=== PATIENT | female | born 1985 | race Caucasian/White ===

== ENCOUNTER 2017-04-20 17:01 | Emergency (ER) | payer OTHER ==
[2017-04-20 17:22] VITALS: BP 125/71; PULSE 100; TEMP 98.7; BMI 27.4
[2017-04-20] MEDS ORDERED: ALBUTEROL SO4 2.5/IPRATROPIUM 0.5 INH SOL 3 ML VIAL.NEB. NEB ONE ×2 (17:22→18:17)
--- NOTE | 2017-04-20 17:22 | PDOC ---
Rapid Medical Evaluation Time Seen by Provider: 04/20/17 17:20 Medical Evaluation: Allergies Allergy/AdvReac Type Severity Reaction Status Date / Time No Known Allergies Allergy Verified 04/20/17 17:19 04/20/17 17:20 31 year old female with asthma (never hospitalized, on albuterol MDI prn) who presents with one week of cough and wheezing. Alert, oriented, no distress. Diffuse expiratory wheezing with poor air entry bilaterally. RR 18, SpO2 95%. -Combivent nebs -Pgu -CXR -To FT for further evaluation
[2017-04-20] MEDS ORDERED: predniSONE 20 MG TABLET (UD) PO ONE (18:17)
[2017-04-20] MEDS ORDERED: predniSONE 20 MG TABLET (UD) ONE (18:17)
[2017-04-20] MEDS: ALBUTEROL SO4 0.083% IH SOL 2.5 MG/3 ML VIAL.NEB. NEB SCH ×2 (18:20→18:21)
--- NOTE | 2017-04-20 18:25 | PDOC ---
History of Present Illness - General Chief Complaint: Respiratory Stated Complaint: ASTHMA Time Seen by Provider: 04/20/17 17:20 Exam Limitations: No Limitations - History of Present Illness Initial Comments: 04/20/17 18:18 Patient is a 31-year-old female with history of asthma presents with wheezing and pain after coughing to bilateral lower back. Patient reports that she has been having wheezing and shortness of breath from asthma for 1 week. Has been using her son's nebulizer. Does not have many medication of her own. Denies fever, cough is nonproductive. No chest pain. Past Medical History: [Denies]. Allergies: No known allergies Medications: [Albuterol PRN, does not have any at home. ] Family History: Non-contributory Social History: Denies smoking, alcohol use, or IVDU Vital signs on arrival are [notable for pulse of 100.] Review of Systems GENERAL/CONSTITUTIONAL: [No fever or chills. No weakness. No weight change.] HEAD, EYES, EARS, NOSE AND THROAT: [No change in vision. No ear pain or discharge. No sore throat. ] CARDIOVASCULAR: [No chest pain or shortness of breath.] RESPIRATORY: [Cough and Wheezing, no hemoptysis.] GASTROINTESTINAL: [No nausea, vomiting, diarrhea or constipation. No rectal bleeding.] GENITOURINARY: [No dysuria, frequency, or change in urination.] MUSCULOSKELETAL: [No joint or muscle swelling or pain. No neck or back pain.] SKIN : [No rash or easy bruising.] NEUROLOGIC: [No headache, vertigo, loss of consciousness, or loss of sensation.] HEMATOLOGIC/LYMPHATIC: [No lymphadenopathy. ] Physical Exam: GENERAL: [The patient is awake, alert, and fully oriented, in no acute distress. ] EYES: [Pupils equal, round and reactive to light, extraocular movements intact, sclera anicteric, conjunctiva clear.] ENT: [Ears normal, nares patent, oropharynx clear without exudates. Moist mucous membranes. No uvula deviation] NECK: [Normal range of motion, supple without lymphadenopathy, JVD, or masses.] LUNGS: [Breath sounds equal, clear to auscultation bilaterally. Expiratory wheezes, and no crackles.] HEART: [Regular rate and rhythm, normal S1 and S2 without murmur, rub or gallop. ] ABDOMEN: [Soft, nontender, normoactive bowel sounds. No guarding, no rebound. No masses. No bruising or abrasions] MUSCULOSKELETAL: [Normal range of motion, no edema. No clubbing or cyanosis. No cords, erythema, or tenderness. No CVA Tenderness with fist.] NEUROLOGICAL: [Cranial nerves II through XII grossly intact. Normal speech, normal gait.] SKIN: [Warm, Dry, normal turgor, no rashes or lesions noted.] Past History - Past Medical History Allergies/Adverse Reactions: Allergies Allergy/AdvReac Type Severity Reaction Status Date / Time No Known Allergies Allergy Verified 04/20/17 17:19 Home Medications: Ambulatory Orders Albuterol 0.083% Nebulizer Anika [Ventolin 0.083% Nebulizer Soln -] 1 neb NEB Q4H #30 vial 04/20/17 Albuterol Sulfate Inhaler - [Ventolin HFA Inhaler -] 1 - 2 inh PO Q4H #1 inhaler 04/20/17 Azithromycin [Zithromax 250mg Tablets -] 250 mg PO UTDICT #6 tab 04/20/17 Prednisone [Deltasone -] 20 mg PO BID #10 tablet 04/20/17 Asthma: Yes Cancer: No Cardiac Disorders: No COPD: No Diabetes: No HTN: No Seizures: No Thyroid Disease: No - Reproductive History (#): 5 Para: 4 - Immunization History Immunization Up to Date: Yes - Suicide/Smoking/Psychosocial Hx Smoking History: Never smoked Have you smoked in the past 12 months: No Number of Cigarettes Smoked Daily: 0 Hx Alcohol Use: No Drug/Substance Use Hx: No Substance Use Type: None Hx Substance Use Treatment: No *Physical Exam - Vital Signs Last Vital Signs Temp Pulse Resp BP Pulse Ox 98.7 F 100 H 19 125/71 95 04/20/17 17:19 04/20/17 17:19 04/20/17 17:19 04/20/17 17:19 04/20/17 17:19 ED Treatment Course - ADDITIONAL ORDERS Additional order review: Laboratory Results 04/20/17 17:28 Urine HCG, Qual Negative Medical Decision Making - Medical Decision Making 04/20/17 18:25 A/P: Patient here with the wheezing states she is having an asthma exacerbation for 1 week. Has been using her son's albuterol with no resolve. Patient now complaining of bilateral lower torso pain, pain with coughing. Patient reports that she's been coughing frequently over the last week. Chest x- ray ordered in triage, urine was negative. Combivent treatment given, prednisone 60 mg by mouth, will reevaluate 04/20/17 19:20 Xray wet read negative for acute cardio pulmonary desease. Same compared to previous. Patient reports that she feels significantly better after the treatment and the steroids. Will DC patient on albuterol and azithromycin. Follow up with PMD. I discussed the physical exam findings, ancillary test results and final diagnoses with the patient. I answered all of the patient's questions. The patient was satisfied with the care received and felt comfortable with the discharge plan and treatment plan. The patient will call to arrange follow-up and will return to the Emergency Department with any new, persistent or worsening symptoms. *DC/Admit/Observation/Transfer Diagnosis at time of Disposition: Asthma Qualifiers: Asthma severity: mild Asthma persistence: intermittent Asthma complication type : with acute exacerbation Qualified Code(s): J45.21 - Mild intermittent asthma with (acute) exacerbation URI (upper respiratory infection) Qualifiers: URI type: unspecified URI Qualified Code(s): J06.9 - Acute upper respiratory infection, unspecified - Discharge Dispostion Disposition: HOME Condition at time of disposition: Stable Admit: No - Prescriptions Prescriptions: Albuterol 0.083% Nebulizer Anika [Ventolin 0.083% Nebulizer Soln -] 1 neb NEB Q4H #30 vial Albuterol Sulfate Inhaler - [Ventolin HFA Inhaler -] 1 - 2 inh PO Q4H #1 inhaler Azithromycin [Zithromax 250mg Tablets -] 250 mg PO UTDICT #6 tab Prednisone [Deltasone -] 20 mg PO BID #10 tablet - Referrals Referrals: [facility] [Provider Group] - Patient Instructions Printed Discharge Instructions: DI for Acute Bronchitis Additional Instructions: Keep head of bed elevated 45 when sleeping Treatments every 4 hours as needed Cool air humidifier Motrin for fever greater than 101 Followup in the primary care doctor's office in 2 days for evaluation. If any respiratory distress, increased cough, inability to drink, increased wheezing please return immediately to emergency department. - Post Discharge Activity Forms/Work/School Notes: Back to Work
== END 2017-04-20 19:51 | disposition home or self-care (01) ==
LOC: JERFT 17:01
PROC: 3E0F7GC Introduction of Other Therapeutic Substance into Respiratory Tract, Via Natural or Artificial Opening (ICD-10-PCS; principal; 2017-04-20)
DX: J45.21 Mild intermittent asthma with (acute) exacerbation (principal); J06.9 Acute upper respiratory infection, unspecified
CPT/HCPCS: 71020-TC; 84703; 94640; 99281-25

== ENCOUNTER 2017-08-27 23:58 | Emergency (ER) | payer OTHER ==
--- NOTE | 2017-08-28 01:17 | PDOC ---
History of Present Illness - General Chief Complaint: Asthma Stated Complaint: ASTHMA Time Seen by Provider: 08/28/17 01:14 History Source: Patient Exam Limitations: No Limitations - History of Present Illness Initial Comments: 32 yo F history asthma presents with asthma exacerbation. She states that her daughter has been sick with URI symptoms (daughter is in ED as a patient currently as well). Patient does not have fever. +Cough, SOB, wheezing. She took an albuterol treatment at home at 7pm but did not significantly improve. Past History - Past Medical History Allergies/Adverse Reactions: Allergies Allergy/AdvReac Type Severity Reaction Status Date / Time No Known Allergies Allergy Verified 08/28/17 00:34 Home Medications: Ambulatory Orders Albuterol 0.083% Nebulizer Anika [Ventolin 0.083% Nebulizer Soln -] 1 neb NEB Q4H #30 vial 04/20/17 Albuterol Sulfate Inhaler - [Ventolin HFA Inhaler -] 1 - 2 inh PO Q4H #1 inhaler 04/20/17 Asthma: Yes Cancer: No Cardiac Disorders: No COPD: No Diabetes: No HTN: No Seizures: No Thyroid Disease: No - Reproductive History (#): 5 Para: 4 - Immunization History Immunization Up to Date: Yes - Suicide/Smoking/Psychosocial Hx Smoking History: Never smoked Have you smoked in the past 12 months: No Number of Cigarettes Smoked Daily: 0 Information on smoking cessation initiated: No Hx Alcohol Use: No Drug/Substance Use Hx: No Substance Use Type: None Hx Substance Use Treatment: No Review of Systems - Review of Systems Able to Perform ROS?: Yes Comments:: GENERAL/CONSTITUTIONAL: No fever or chills. No weakness. HEAD, EYES, EARS, NOSE AND THROAT: No change in vision. No ear pain or discharge. No sore throat. CARDIOVASCULAR: No chest pain. +Shortness of breath. RESPIRATORY: No cough. +Wheezing. No hemoptysis. GASTROINTESTINAL: No nausea, vomiting, diarrhea or constipation. GENITOURINARY: No dysuria, frequency, or change in urination. MUSCULOSKELETAL: No joint or muscle swelling or pain. No neck or back pain. SKIN: No rash NEUROLOGIC: No headache, vertigo, loss of consciousness, or change in strength/ sensation. ENDOCRINE: No increased thirst. No abnormal weight change. HEMATOLOGIC/LYMPHATIC: No anemia, easy bleeding, or history of blood clots. ALLERGIC/IMMUNOLOGIC: No hives or skin allergy. *Physical Exam - Vital Signs Last Vital Signs Temp Pulse Resp BP Pulse Ox 98.3 F 77 18 117/68 97 08/28/17 00:35 08/28/17 00:35 08/28/17 00:35 08/28/17 00:35 08/28/17 00:35 - Physical Exam Comments: GENERAL: Awake, alert, and fully oriented, in no acute distress HEAD: No signs of trauma EYES: PERRLA, EOMI, sclera anicteric, conjunctiva clear ENT: Auricles normal inspection, hearing grossly normal, nares patent, oropharynx clear without exudates. Moist mucosa NECK: Normal ROM, supple, no lymphadenopathy, JVD, or masses LUNGS: Dec air entry B/L, scattered exp wheezes. Speaking full sentences. HEART: Regular rate and rhythm, normal S1 and S2, no murmurs, rubs or gallops ABDOMEN: Soft, nontender, normoactive bowel sounds. No guarding, no rebound. No masses EXTREMITIES: Normal range of motion, no edema. No clubbing or cyanosis. No cords, erythema, or tenderness NEUROLOGICAL: Cranial nerves II through XII grossly intact. Normal speech, normal gait SKIN: Warm, Dry, normal turgor, no rashes or lesions noted. Medical Decision Making - Medical Decision Making 08/28/17 02:00 Pt with asthma exacerbation. Will give nebs and steroids and reassess. Likely DC home. 08/28/17 03:33 Pt reports improvement in resp symptoms. Lung exam improved. Stable for DC home. *DC/Admit/Observation/Transfer Diagnosis at time of Disposition: Asthma Qualifiers: Asthma severity: unspecified severity Asthma persistence: intermittent Asthma complication type: with acute exacerbation Qualified Code(s): J45.21 - Mild intermittent asthma with (acute) exacerbation - Discharge Dispostion Disposition: HOME Condition at time of disposition: Stable Admit: No - Referrals Referrals: Dmitriy Rogers MD [Primary Care Provider] - - Patient Instructions Printed Discharge Instructions: DI for Asthma -- Adult - Post Discharge Activity
[2017-08-28 01:18] VITALS: BP 117/68; PULSE 77; TEMP 98.3; BMI 27.4
[2017-08-28] MEDS ORDERED: predniSONE 20 MG TABLET (UD) PO ONE (01:25)
[2017-08-28] MEDS ORDERED: predniSONE 20 MG TABLET (UD) ONE (01:31)
[2017-08-28] MEDS ORDERED: ALBUTEROL SO4 2.5/IPRATROPIUM 0.5 INH SOL 3 ML VIAL.NEB. NEB ONE (01:32)
[2017-08-28] MEDS: ALBUTEROL SO4 2.5/IPRATROPIUM 0.5 INH SOL 3 ML VIAL.NEB. NEB SCH ×4 (01:44→02:53)
== END 2017-08-28 04:23 | disposition home or self-care (01) ==
LOC: JER 23:58
PROC: 3E0F7GC Introduction of Other Therapeutic Substance into Respiratory Tract, Via Natural or Artificial Opening (ICD-10-PCS; principal; 2017-08-27)
PROC: 3E0F7GC Introduction of Other Therapeutic Substance into Respiratory Tract, Via Natural or Artificial Opening (ICD-10-PCS; 2017-08-27)
PROC: 3E0F7GC Introduction of Other Therapeutic Substance into Respiratory Tract, Via Natural or Artificial Opening (ICD-10-PCS; 2017-08-27)
PROC: 3E0F7GC Introduction of Other Therapeutic Substance into Respiratory Tract, Via Natural or Artificial Opening (ICD-10-PCS; 2017-08-27)
DX: J45.21 Mild intermittent asthma with (acute) exacerbation (principal)
CPT/HCPCS: 94640; 99282-25

== ENCOUNTER 2018-02-05 22:54 | Emergency (ER) | payer OTHER ==
[2018-02-05 22:57] VITALS: BP 109/63; PULSE 88; TEMP 98; BMI 29.6
--- NOTE | 2018-02-06 00:50 | PDOC ---
History of Present Illness - General Chief Complaint: Foreign Body (FB) Stated Complaint: EAR PAIN Time Seen by Provider: 02/05/18 22:58 History Source: Patient Exam Limitations: No Limitations - History of Present Illness Initial Comments: 02/06/18 00:40 HISTORY OF PRESENT ILLNESS: This is a 32-year-old woman who presents emergency Department with right ear pain and minimal hearing loss after using Q-tips this evening. Patient states all cleaning ears she had sudden pain and decrease in hearing loss. Patient feels that something is stuck in her ear at this time. No recent travel or sick contacts. PAST MEDICAL HISTORY: asthma SURGICAL HISTORY: Denies ALLERGIES: No known drug allergies REVIEW OF SYSTEMS General/Constitutional: Denies fever or chills. Denies weakness, weight change. HEENT: Denies change in vision. Right ear pain. No discharge. Decreased hearing. Denies sore throat. Cardiovascular: Denies chest pain or shortness of breath. Respiratory: Denies cough, wheezing, or hemoptysis. Gastrointestinal: Denies nausea, vomiting, diarrhea or constipation. Denies rectal bleeding. Genitourinary: Denies dysuria, frequency, or change in urination. Musculoskeletal: Denies joint or muscle swelling or pain. Denies neck or back pain. Skin and breasts: Denies rash or easy bruising. Neurologic: Denies headache, vertigo, loss of consciousness, or loss of sensation. Psychiatric: Denies depression or anxiety. Endocrine: Denies increased thirst. Denies abnormal weight change. Hematologic/Lymphatic: Denies anemia, easy bleeding, or history of blood clots. Allergic/Immunologic: Denies hives or skin allergy. Denies latex allergy. PHYSICAL EXAM General Appearance: Well-appearing, appropriately dressed. No apparent distress , no intoxication. HEENT: EOMI, PERRLA, normal ENT inspection, normal voice, pharynx normal. No conjunctival pallor. No photophobia, scleral icterus. Right TM with rupture noted. Left TM WNL. Neck: Supple. Trachea midline. No tenderness, rigidity, carotid bruit, stridor , lymphadenopathy, or thyromegaly. Respiratory/Chest: Lungs CTAB. No shortness of breath, chest tenderness, respiratory distress, accessory muscle use. No crackles, rales, rhonchi, stridor , wheezing, dullness Cardiovascular: RRR. S1, S2. No JVD, murmur, bradycardia, tachycardia. Vascular Pulses: Dorsalis-Pedis (R): 2+, Dorsalis-Pedis (L): 2+ Gastrointestinal/Abdominal: Normal bowel sounds. Abdomen soft, non-distended. No tenderness or rebound tenderness. No organomegaly, pulsatile mass, guarding, hernia, hepatomegaly, splenomegaly. Lymphatic: No adenopathy, tenderness. Musculoskeletal/Extremities: Normal inspection. FROM of all extremities, normal capillary refill. Pelvis Stable. No CVA tenderness. No tenderness to extremities, pedal edema, swelling, erythema or deformity. Integumentary: Appropriate color, dry, warm. No cyanosis, erythema, jaundice or rash Neurologic: interventional nurse II-XII intact. Fully oriented, alert. Appropriate mood/affect. Motor strength 5/5. No appreciable EOM palsy, facial droop or sensory deficit. Past History - Past Medical History Allergies/Adverse Reactions: Allergies Allergy/AdvReac Type Severity Reaction Status Date / Time No Known Allergies Allergy Verified 02/05/18 22:57 Home Medications: Ambulatory Orders Albuterol 0.083% Nebulizer Anika [Ventolin 0.083% Nebulizer Soln -] 1 neb NEB Q4H #30 vial 08/28/17 Albuterol Sulfate Inhaler - [Ventolin HFA Inhaler -] 1 - 2 inh PO Q4H #1 inhaler 08/28/17 predniSONE [Deltasone -] 40 mg PO DAILY #8 tablet 08/28/17 Ofloxacin Otic [Floxin Otic -] 5 drop AD BID #50 drops 02/06/18 Asthma: Yes Cancer: No Cardiac Disorders: No COPD: No Diabetes: No HTN: No Seizures: No Thyroid Disease: No - Reproductive History (#): 5 Para: 4 - Immunization History Immunization Up to Date: Yes - Suicide/Smoking/Psychosocial Hx Smoking History: Never smoked Have you smoked in the past 12 months: No Number of Cigarettes Smoked Daily: 0 Hx Alcohol Use: No Drug/Substance Use Hx: No Substance Use Type: None Hx Substance Use Treatment: No *Physical Exam - Vital Signs Last Vital Signs Temp Pulse Resp BP Pulse Ox 98.0 F 88 18 109/63 100 02/05/18 22:55 02/05/18 22:55 02/05/18 22:55 02/05/18 22:55 02/05/18 22:55 Medical Decision Making - Medical Decision Making 02/06/18 01:14 A/P: 32-year-old woman with right ear pain status post direct trauma with a cotton swab Left TM is within normal limits Right TM reveals perforation without retained foreign body No tenderness to tragus or mastoid bilaterally External auditory canals free of erythema or exudates I will discharge the patient home with ofloxacin drops and ENT referral. Patient verbalizes understanding of discharge instructions. *DC/Admit/Observation/Transfer Diagnosis at time of Disposition: Tympanic membrane perforation Qualifiers: Laterality: right Qualified Code(s): H72.91 - Unspecified perforation of tympanic membrane, right ear - Discharge Dispostion Disposition: HOME Condition at time of disposition: Stable Decision to Admit order: No - Prescriptions Prescriptions: Ofloxacin Otic [Floxin Otic -] 5 drop AD BID #50 drops - Referrals Referrals: Eric Borjas MD [Staff Physician] - - Patient Instructions Printed Discharge Instructions: DI for Tympanic Membrane Perforation-Adult Additional Instructions: You have been given a referral for Dr. Borjas who is an ENT specialist. Make an appointment for evaluation on Wednesday. Keep water out of your ear. Return to emergency department for any concerns Print Language: MONEGASQUE - Post Discharge Activity
== END 2018-02-06 01:18 | disposition home or self-care (01) ==
LOC: JER 22:54
DX: S09.21XA Traumatic rupture of right ear drum, initial encounter (principal); W22.8XXA Striking against or struck by other objects, initial encounter; Y93.E8 Activity, other personal hygiene; Y92.038 Other place in apartment as the place of occurrence of the external cause; Y99.8 Other external cause status
CPT/HCPCS: 99282-25

== ENCOUNTER 2018-04-02 23:45 | Inpatient (IN) | payer OTHER ==
[2018-04-02] MEDS: OXYTOCIN 20 UNITS in 0.9% NS 20 UNIT/1,000 ML INFUS.BAG IV SCH (23:55)
[2018-04-03] MEDS ORDERED: DEXTROSE 5%-LACTATED RINGERS 1,000 ML IV SCH (00:30)
[2018-04-03] MEDS ORDERED: WITCH HAZEL 50% (TUCKS) 40 PAD/JAR PAD TP PRN (00:32)
[2018-04-03] MEDS ORDERED: BENZOCAINE 28 GM HEMORRHOIDAL OINTMENT TP PRN (00:32)
[2018-04-03] MEDS ORDERED: METHYLERGONOVINE MALEATE 0.2 MG/1 ML AMP IM PRN (00:32)
[2018-04-03] MEDS ORDERED: BENZOCAINE 20% 57 GM BOTTLE TP PRN (00:32)
[2018-04-03] MEDS ORDERED: BISACODYL 10 MG SUPP.RECT RC PRN (00:32)
--- NOTE | 2018-04-03 00:32 | HP ---
Past Medical History - Admission Chief Complaint: Labor pain History of Present Illness: 32 yo @ 37.2 weeks gestation, EDC 04/21/18, presents to L&D in active labor. She was brought from ER by wheelchair ready to deliver. History Source: Patient Limitations to Obtaining History: No Limitations - Past Medical History ...: 6 ...Para: 5 ...EDC by Brendano: 04/17/18 Heme/Onc: Yes: Anemia - Past Surgical History Past Surgical History: Yes: None Hx Myomectomy: No Hx Transabdominal Cerclage: No - Smoking History Smoking history: Never smoked Have you smoked in the past 12 months: No Aproximately how many cigarettes per day: 0 - Alcohol/Substance Use Hx Alcohol Use: No - Social History Usual Living Arrangement: Yes: With Significant Other History of Recent Travel: No Home Medications - Allergies Allergies/Adverse Reactions: Allergies Allergy/AdvReac Type Severity Reaction Status Date / Time almond Allergy Verified 04/03/18 00:42 apple Allergy Verified 04/03/18 00:42 strawberry Allergy Verified 04/03/18 00:42 - Home Medications Home Medications: Ambulatory Orders Albuterol 0.083% Nebulizer Anika [Ventolin 0.083% Nebulizer Soln -] 1 neb NEB Q4H #30 vial 08/28/17 Albuterol Sulfate Inhaler - [Ventolin HFA Inhaler -] 1 - 2 inh PO Q4H #1 inhaler 08/28/17 Pnv No.95/Ferrous Fum/Folic AC [ Vitamin Tablet] 1 tab PO DAILY Family Disease History - Family Disease History Family History: Unremarkable Review of Systems - Review of Systems Constitutional: reports: No Symptoms Eyes: reports: No Symptoms HENT: reports: No Symptoms Neck: reports: No Symptoms Cardiovascular: reports: No Symptoms Respiratory: reports: No Symptoms Gastrointestinal: reports: No Symptoms Genitourinary: reports: Pain Breasts: reports: No Symptoms Reported Musculoskeletal: reports: No Symptoms Integumentary: reports: No Symptoms Neurological: reports: No Symptoms Endocrine: reports: No Symptoms Psychiatric: reports: No Symptoms Pain Intensity: 10 Physical Exam - Maternity Constitutional: Yes: Well Nourished Eyes: Yes: Conjunctiva Clear HENT: Yes: Atraumatic Neck: Yes: Supple Cardiovascular: Yes: Regular Rate and Rhythm Lungs: Clear to auscultation - Abdominal Exam/OB Number of Fetuses: Single Presentation: Vertex - Vaginal Exam/OB Dilatation (cm): 10 Effacement (%): 100 Amniotic Membrane Status: Intact Amniotic Fluid: Yes: Clear Station: 0 - Physical Exam Musculoskeletal: Yes: WNL Extremities: Yes: WNL ...Motor Strength: WNL Psychiatric: Yes: Alert, Oriented Problem List - Problems (1) Arrested active labor, delivered, current hospitalization Code(s): O62.1 - SECONDARY UTERINE INERTIA Assessment/Plan Active labor 38 weeks gestation Admit for vaginal delivery
--- NOTE | 2018-04-03 00:36 | PN ---
Delivery - Delivery Vaginal Delivery: Spontaneous Episiotomy/Laceration: None EBL (cc): 250 Remarks - Remarks Remarks: Normal spontaneous vaginal delivery of a live infant over intact perineum. Nose / Oropharynx suctioned @ perineum. Cord clamped and cut. Placenta expelled spontaneously intact. Baby handed to nurse. Mother in stable condition
[2018-04-03 01:17] LABS: BASO % 0.3 % (0-2.0); HEMATOCRIT 35.1 % (32.4-45.2); HEMOGLOBIN 11.7 GM/dL (10.7-15.3); LYMPH % 9.8 % (8-40); MCHC 33.4 g/dl (32.0-36.0); MONO % 8.3 % (3.8-10.2); NEUT % 78.6 % (42.8-82.8); PLATELET COUNT 244 K/MM3 (134-434); RDW 14.9 % (11.6-15.6)
[2018-04-03 01:30] LABS: INR 0.99 (0.83-1.09); PROTHROMBIN TIME (PATIENT) 11.7 SEC (9.7-13.0)
[2018-04-03 01:33] LABS: ACTIVATED PTT 33.2 SECONDS (25.2-36.5)
[2018-04-03 01:41] LABS: ALBUMIN 2.8 g/dl (3.4-5.0); ALK PHOS 141 U/L (45-117); ANION GAP 10 MMOL/L (8-16); BILIRUBIN,TOTAL 0.6 mg/dL (0.2-1); BLOOD UREA NITROGEN 6 mg/dL (7-18); CALCIUM 7.9 mg/dL (8.5-10.1); CHLORIDE 103 mmol/L (98-107); CO2 22 mmol/L (21-32); CREATININE 0.6 mg/dL (0.55-1.3); GLUCOSE,RANDOM 95 mg/dL (74-106); POTASSIUM 4.3 mmol/L (3.5-5.1); SGOT/AST 31 U/L (15-37); SGPT/ALT 28 U/L (13-61); SODIUM 135 mmol/L (136-145); TOT PROT 6.9 g/dl (6.4-8.2)
[2018-04-03 01:55] VITALS: BMI 30.6
[2018-04-03] MEDS: OXYTOCIN 20 UNITS in 0.9% NS 20 UNIT/1,000 ML INFUS.BAG IV SCH ×2 (02:13→12:00)
[2018-04-03 02:38] LABS: URINE APPEARANCE CLOUDY; URINE BILIRUBIN NEGATIVE (<2.0 mg/dL); URINE COLOR RED; URINE GLUCOSE (UA) NEGATIVE (NEGATIVE); URINE KETONE 1+ (NEGATIVE); URINE LEUK ESTERASE 1+ (NEGATIVE); URINE NITRITE NEGATIVE (NEGATIVE); URINE PROTEIN 2+ (NEGATIVE)
[2018-04-03] MEDS ORDERED: OXYTOCIN 20 UNITS in 0.9% NS 20 UNIT/1,000 ML INFUS.BAG IV ONE (02:45)
[2018-04-03 02:53] LABS: COCAINE, UR NEGATIVE ng/ml (CUTOFF=300); METHADONE, UR NEGATIVE ng/ml (CUTOFF=300); OPIATES, URI NEGATIVE ng/ml (CUTOFF=300); PHENCYCLIDINE,URINE NEGATIVE ng/ml (CUTOFF=25); URINE AMPHETAMINES NEGATIVE ng/ml (CUTOFF=500); URINE BARBITURATES NEGATIVE ng/ml (CUTOFF=200); URINE BENZODIAZEPINES NEGATIVE ng/ml (CUTOFF=200)
[2018-04-03 02:58] LABS: URINE MUCUS RARE; YEAST MANY
[2018-04-03] MEDS ORDERED: TUBERCULIN PPD 5 TU/0.1ML SYRINGE (IN PATIENT USE ONLY) ID ONE (03:30)
[2018-04-03] MEDS: IBUPROFEN 600 MG TABLET (FP) PO PRN (08:38)
[2018-04-03] MEDS: ACETAMINOPHEN 325 MG TABLET (FP) PO PRN (08:38)
[2018-04-03] MEDS: FERROUS SO4 325 MG TABLET (FP) PO SCH ×2 (09:04→22:29)
[2018-04-03] MEDS: PRENATAL VITAMINS W/ FOLIC ACID TABLET (FP) PO SCH (09:04)
[2018-04-03] MEDS ORDERED: PNEUMOC 13-VAL CONJ-DIP CRM/PF 0.5 ML DISP.SYRIN IM ONE (10:00)
[2018-04-03] MEDS ORDERED: DIPHTH,PERTUSS(ACELL),TET 0.5 ML DISP.SYRIN IM ONE (10:00)
[2018-04-03] MEDS ORDERED: FLU VACCINE QUAD 60 MCG/0.5 ML (MDV 18-19) IM ONE (10:00)
[2018-04-03] MEDS ORDERED: ALBUTEROL SO4 8 GM HFA INHALER IH PRN (11:16)
--- NOTE | 2018-04-03 14:12 | PN ---
Post Progress Note - Subjective Subjective: 32 yo Para 6 status post vaginal delivery, seen and evaluated. Doing well. Post Day: 1 Type of Delivery: Vital Signs: Vital Signs Temperature 97.9 F 04/03/18 09:00 Pulse Rate 79 04/03/18 09:00 Respiratory Rate 20 04/03/18 09:00 Blood Pressure 100/58 L 04/03/18 09:00 O2 Sat by Pulse Oximetry (%) Breast Exam: Yes: Soft Uterus: Yes: Fundus Firm Abdomen/GI: Yes: Abdomen soft, Tolerating PO Lochia: Yes: Rubra Lochia, amount: Moderate Extremities: Yes: Calves non-tender Perineum: Yes: Intact Activity: Ambulating - Labs Labs: CBC WBC 14.0 K/mm3 (4.0-10.0) H 04/03/18 00:30 RBC 4.50 M/mm3 (3.60-5.2) 04/03/18 00:30 Hgb 11.7 GM/dL (10.7-15.3) 04/03/18 00:30 Hct 35.1 % (32.4-45.2) D 04/03/18 00:30 MCV 78.0 fl (80-96) L 04/03/18 00:30 MCH 26.0 pg (25.7-33.7) D 04/03/18 00:30 MCHC 33.4 g/dl (32.0-36.0) 04/03/18 00:30 RDW 14.9 % (11.6-15.6) D 04/03/18 00:30 Plt Count 244 K/MM3 (134-434) D 04/03/18 00:30 MPV 10.0 fl (7.5-11.1) D 04/03/18 00:30 Absolute Neuts (auto) 11.0 K/mm3 (1.5-8.0) H 04/03/18 00:30 Neutrophils % 78.6 % (42.8-82.8) 04/03/18 00:30 Lymphocytes % 9.8 % (8-40) 04/03/18 00:30 Monocytes % 8.3 % (3.8-10.2) 04/03/18 00:30 Eosinophils % 3.0 % (0-4.5) 04/03/18 00:30 Basophils % 0.3 % (0-2.0) 04/03/18 00:30 Nucleated RBC % 0 % (0-0) 04/03/18 00:30 Problem List - Problems (1) Arrested active labor, delivered, current hospitalization Code(s): O62.1 - SECONDARY UTERINE INERTIA (2) Status post vaginal delivery Code(s): CWI5701 - Assessment/Plan Status post vaginal delivery Stable Continue routine care
[2018-04-04 08:19] LABS: BASO % 0.8 % (0-2.0); EOS % 9.8 % (0-4.5); HEMATOCRIT 31.6 % (32.4-45.2); LYMPH % 23.6 % (8-40); MCH 24.7 pg (25.7-33.7); MCHC 31.5 g/dl (32.0-36.0); MEAN CELL VOLUME 78.3 fl (80-96); MEAN PLT VOLUME 9.4 fl (7.5-11.1); MONO % 8.7 % (3.8-10.2); NEUT % 57.1 % (42.8-82.8); PLATELET COUNT 225 K/MM3 (134-434); RBC 4.04 M/mm3 (3.60-5.2); RDW 15.1 % (11.6-15.6); WHITE BLOOD COUNT 10.3 K/mm3 (4.0-10.0)
[2018-04-04] MEDS: FERROUS SO4 325 MG TABLET (FP) PO SCH (10:00)
[2018-04-04] MEDS: PRENATAL VITAMINS W/ FOLIC ACID TABLET (FP) PO SCH (10:00)
[2018-04-04] MEDS: IBUPROFEN 600 MG TABLET (FP) PO PRN (10:05)
[2018-04-04] MEDS: ACETAMINOPHEN 325 MG TABLET (FP) PO PRN (10:06)
[2018-04-04 13:14] LABS: HBsAG SCREEN Negative (Negative)
[2018-04-04 14:34] VITALS: BP 103/69; PULSE 77; TEMP 98.3
--- NOTE | 2018-04-04 15:17 | DS ---
Physical Exam-[employer] Vital Signs: Vital Signs Temperature 98.3 F 04/04/18 10:00 Pulse Rate 77 04/04/18 10:00 Respiratory Rate 18 04/04/18 10:00 Blood Pressure 103/69 04/04/18 10:00 O2 Sat by Pulse Oximetry (%) Constitutional: Yes: Well Nourished Eyes: Yes: Conjunctiva Clear HENT: Yes: Atraumatic Neck: Yes: Supple Cardiovascular: Yes: Regular Rate and Rhythm Respiratory: Yes: Regular Gastrointestinal: Yes: Normal Bowel Sounds External Genitalia: Yes: Normal Vaginal Exam: Yes: Normal Cervix: Yes: Normal Uterus: Yes: Firm ....Post : Yes: Uterus firm, Moderate lochia serosa Musculoskeletal: Yes: WNL Extremities: Yes: WNL Integumentary: Yes: WNL Neurological: Yes: Alert, Oriented ...Motor Strength: WNL Psychiatric: Yes: Alert, Oriented Labs: CBC, BMP 04/04/18 07:00 04/03/18 00:30 Delivery - Delivery Vaginal Delivery: Spontaneous Type of Anesthesia: None Episiotomy/Laceration: None EBL (cc): 350 Delivery, Single - Stages of Labor Date 1st Stage Initiatied: 04/02/18 Time 1st Stage Initiated: 20:00 Date 2nd Stage Initiated: 04/02/18 Time 2nd Stage Initiated: 23:45 Date of Delivery: 04/02/18 Time of Delivery: 23:45 Time Placenta Delivered: 23:50 - Condition of Infant Groundhand/Medical/Surgery Registered Nurse Present: No Gender: Female Weight: 6 lb 2 oz Position: Right, OA Total Hours ROM (Hrs/Mins): 05MIN - 5 Minutes Total Score: 9 1 Minute Total Score: 9 - Feeding Plan Initial Plan: Elected not to breastfeed exclusively throughout hospitalization Discharge Summary Reason For Visit: LABOR Current Active Problems Arrested active labor, delivered, current hospitalization (Acute) Status post vaginal delivery (Acute) Procedures: Principal: Normal spontaneous vaginal delivery Hospital Course: Routine care Condition: Good - Instructions Diet, Activity, Other Instructions: Regular diet No douching, no sexual intercourse x 6 weeks F/U in clinic in 6 weeks Disposition: HOME - Home Medications Comprehensive Discharge Medication List: Ambulatory Orders Albuterol 0.083% Nebulizer Anika [Ventolin 0.083% Nebulizer Soln -] 1 neb NEB Q4H #30 vial 08/28/17 Albuterol Sulfate Inhaler - [Ventolin HFA Inhaler -] 1 - 2 inh PO Q4H #1 inhaler 08/28/17 Pnv No.95/Ferrous Fum/Folic AC [ Vitamin Tablet] 1 tab PO DAILY
[2018-04-04] MEDS ORDERED: SENNOSIDES/DOCUSATE COMBO (SENNA PLUS) TABLET (UD) PO PRN (22:00)
== END 2018-04-04 16:45 | disposition home or self-care (01) | DRG 560 ==
LOC: JLDR 23:45 → J3W 04-03 03:57
PROVIDERS: ADMIT Obstetrics & Gynecology; ATTEND Obstetrics & Gynecology
PROC: 10E0XZZ Delivery of Products of Conception, External Approach (ICD-10-PCS; principal; 2018-04-03)
DX: O62.1 Secondary uterine inertia (principal); Z3A.37 37 weeks gestation of pregnancy; Z37.0 Single live birth
CPT/HCPCS: 36415; 59409; 71046-TC-FY; 80053; 80307; 81003; 81015; 85025; 85610; 85730; 86593; 86762; 86850; 86900; 86901; 87340; 87389; 90670; 90686; 90715; G0008; G0009

== ENCOUNTER 2018-05-11 17:13 | Emergency (ER) | payer OTHER ==
--- NOTE | 2018-05-11 17:31 | PDOC ---
Rapid Medical Evaluation Time Seen by Provider: 05/11/18 17:29 Medical Evaluation: Allergies Allergy/AdvReac Type Severity Reaction Status Date / Time almond Allergy Verified 04/03/18 00:42 apple Allergy Verified 04/03/18 00:42 strawberry Allergy Verified 04/03/18 00:42 05/11/18 17:29 I have performed a brief in-person evaluation of this patient. The patient presents with a chief complaint of: wheezing for 1 week Pertinent physical exam findings: Lungs CTAB. OP- cobblestoning in posterior. I have ordered the following: nothing The patient will proceed to the ED for further evaluation. Discharge Disposition - Diagnosis URI (upper respiratory infection) - Referrals - Patient Instructions - Post Discharge Activity
[2018-05-11 17:32] VITALS: BP 116/96; PULSE 91; TEMP 98.3; BMI 27.4
[2018-05-11] MEDS ORDERED: DEXAMETHASONE LIQUID 0.5 MG/5 ML 240 ML BULK BOTTLE PO ONE (18:18)
[2018-05-11] MEDS ORDERED: ALBUTEROL SO4 2.5/IPRATROPIUM 0.5 INH SOL 3 ML VIAL.NEB. NEB ONE (18:19)
[2018-05-11] MEDS ORDERED: DEXAMETHASONE SOD PHOSPHATE 10 MG/1 ML VIAL ONE (18:19)
--- NOTE | 2018-05-11 18:20 | PDOC ---
History of Present Illness - General Chief Complaint: Asthma Stated Complaint: ASTHMA Time Seen by Provider: 05/11/18 17:29 - History of Present Illness Initial Comments: 05/11/18 18:18 32 y/o F with PMH significant for asthma presents for wheezing unrelieved with home nebulizer x2 weeks. No prior hospitalizations or intubations Past History - Past Medical History Allergies/Adverse Reactions: Allergies Allergy/AdvReac Type Severity Reaction Status Date / Time almond Allergy Verified 05/11/18 17:32 apple Allergy Verified 05/11/18 17:32 strawberry Allergy Verified 05/11/18 17:32 Home Medications: Ambulatory Orders Albuterol 0.083% Nebulizer Anika [Ventolin 0.083% Nebulizer Soln -] 1 neb NEB Q4H #30 vial 08/28/17 Albuterol Sulfate Inhaler - [Ventolin HFA Inhaler -] 1 - 2 inh PO Q4H #1 inhaler 08/28/17 Albuterol 0.083% Nebulizer Anika [Ventolin 0.083% Nebulizer Soln -] 1 neb NEB Q4H PRN #20 vial 05/11/18 Albuterol Sulfate Inhaler - [Ventolin HFA Inhaler -] 1 - 2 inh PO Q4H #1 inhaler 05/11/18 Asthma: Yes Cancer: No Cardiac Disorders: No COPD: No Diabetes: No HTN: No Seizures: No Thyroid Disease: No - Reproductive History (#): 5 Para: 4 - Immunization History Immunization Up to Date: Yes - Suicide/Smoking/Psychosocial Hx Smoking History: Never smoked Have you smoked in the past 12 months: No Number of Cigarettes Smoked Daily: 0 Information on smoking cessation initiated: No Hx Alcohol Use: No Drug/Substance Use Hx: No Substance Use Type: None Hx Substance Use Treatment: No Review of Systems - Review of Systems Constitutional: No: Fever Respiratory: Yes: Cough, Shortness of Breath, Wheezing *Physical Exam - Vital Signs Last Vital Signs Temp Pulse Resp BP Pulse Ox 98.3 F 91 H 19 116/96 96 05/11/18 17:30 05/11/18 17:30 05/11/18 17:30 05/11/18 17:30 05/11/18 17:30 - Physical Exam Comments: 05/11/18 18:19 HEAD: NC/AT EYES: Conjuntiva clear Ears: Canals and TM's normal NOSE: No d/c THROAT: Moist mucous membrances, oral pharanx clear, uvula midline NECK: Supple without adenopathy CARDIAC: S1 S2 LUNGS: decreased breath sounds with wheezing at the R base ABDOMEN: Soft NT ND MS: Full ROM in all joints without edema NEUROLOGIC: No gross sensory or motor deficits, NVID SKIN: Normal color and temperature no lesions or rashes Moderate Sedation - Procedure Monitoring Vital Signs: Procedure Monitoring Vital Signs Temperature 98.3 F 05/11/18 17:30 Pulse Rate 91 H 05/11/18 17:30 Respiratory Rate 05/11/18 17:30 Blood Pressure 116/96 05/11/18 17:30 O2 Sat by Pulse Oximetry (%) 96 05/11/18 17:30 Medical Decision Making - Medical Decision Making 05/11/18 19:33 cleared after 4 duo nebs *DC/Admit/Observation/Transfer Diagnosis at time of Disposition: Asthma exacerbation Diagnosis at time of Disposition: (Ruled Out): URI (upper respiratory infection) - Discharge Dispostion Disposition: HOME Condition at time of disposition: Stable Decision to Admit order: No - Referrals Referrals: Eric Alvarenga MD [Staff Physician] - - Patient Instructions Printed Discharge Instructions: Asthma -- Adult Additional Instructions: Return to the emergency room should symptoms worsen or go unresolved. Please follow-up with pulmonology in one to 2 days for further evaluation and treatment options. Refill of albuterol Ventolin inhaler as well as albuterol nebulizing solution was sent here pharmacy. Please use the medication as directed and as needed. - Post Discharge Activity
[2018-05-11] MEDS: ALBUTEROL SO4 2.5/IPRATROPIUM 0.5 INH SOL 3 ML VIAL.NEB. NEB SCH ×4 (18:22→19:18)
== END 2018-05-11 19:51 | disposition home or self-care (01) ==
LOC: JERFT 17:13
PROC: 3E0F7GC Introduction of Other Therapeutic Substance into Respiratory Tract, Via Natural or Artificial Opening (ICD-10-PCS; principal; 2018-05-11)
DX: J45.901 Unspecified asthma with (acute) exacerbation (principal)
CPT/HCPCS: 99281-25

== ENCOUNTER 2018-07-11 19:33 | Emergency (ER) | payer SELFPAY ==
[2018-07-11 19:38] VITALS: BP 116/79; PULSE 84; TEMP 98; BMI 29.1
[2018-07-11] MEDS ORDERED: ALBUTEROL SO4 2.5/IPRATROPIUM 0.5 INH SOL 3 ML VIAL.NEB. NEB ONE ×2 (19:38→21:59)
--- NOTE | 2018-07-11 19:38 | PDOC ---
Rapid Medical Evaluation Time Seen by Provider: 07/11/18 19:36 Medical Evaluation: Allergies Allergy/AdvReac Type Severity Reaction Status Date / Time almond Allergy Verified 05/11/18 17:32 apple Allergy Verified 05/11/18 17:32 strawberry Allergy Verified 05/11/18 17:32 07/11/18 19:36 I have performed a brief in-person evaluation of this patient. The patient presents with a chief complaint of: asthma exacerbation x 1 week. Patient reports dry coughing used nebulizer with no relief of symptoms Pertinent physical exam findings: NAD speaking full sentences + bibasilar wheezing I have ordered the following: neb treatment, chest xray The patient will proceed to the ED for further evaluation. Discharge Disposition - Diagnosis Shortness of breath - Referrals - Patient Instructions - Post Discharge Activity
[2018-07-11] MEDS ORDERED: predniSONE 20 MG TABLET (UD) PO ONE (20:55)
--- NOTE | 2018-07-11 20:55 | PDOC ---
History of Present Illness - General Chief Complaint: Asthma Stated Complaint: ASTHMA Time Seen by Provider: 07/11/18 19:36 History Source: Patient - History of Present Illness Initial Comments: 07/11/18 20:51 33 year female with increased wheezing over the last 2 week today worse with wheezing since this morning. last asthma exacerbation 1 month ago. denies intubation or hospitalization. denies fever / chills LMP: 06/22/18 Past History - Past Medical History Allergies/Adverse Reactions: Allergies Allergy/AdvReac Type Severity Reaction Status Date / Time almond Allergy Verified 07/11/18 19:38 apple Allergy Verified 07/11/18 19:38 strawberry Allergy Verified 07/11/18 19:38 Home Medications: Ambulatory Orders Albuterol 0.083% Nebulizer Anika [Ventolin 0.083% Nebulizer Soln -] 1 neb NEB Q4H #30 vial 08/28/17 Albuterol Sulfate Inhaler - [Ventolin HFA Inhaler -] 1 - 2 inh PO Q4H #1 inhaler 08/28/17 Albuterol 0.083% Nebulizer Anika [Ventolin 0.083% Nebulizer Soln -] 1 neb NEB Q4H PRN #20 vial 05/11/18 Albuterol Sulfate Inhaler - [Ventolin HFA Inhaler -] 1 - 2 inh PO Q4H #1 inhaler 05/11/18 Albuterol 0.083% Nebulizer Anika [Ventolin 0.083% Nebulizer Soln -] 1 neb NEB Q6H PRN #25 vial 07/11/18 Albuterol Sulfate Inhaler - [Ventolin HFA Inhaler -] 1 - 2 inh PO Q4H PRN #1 inhaler 07/11/18 Nebulizer [Aeroeclipse II] 1 each QID #1 each 07/11/18 Prednisone [Prednisone 50 MG TABLETS] 50 mg PO DAILY #4 tablet 07/11/18 Asthma: Yes Cancer: No Cardiac Disorders: No COPD: No Diabetes: No HTN: No Seizures: No Thyroid Disease: No - Reproductive History (#): 5 Para: 4 - Immunization History Immunization Up to Date: Yes - Suicide/Smoking/Psychosocial Hx Smoking History: Never smoked Have you smoked in the past 12 months: No Number of Cigarettes Smoked Daily: 0 Information on smoking cessation initiated: No Hx Alcohol Use: No Drug/Substance Use Hx: No Substance Use Type: None Hx Substance Use Treatment: No Review of Systems - Review of Systems Able to Perform ROS?: Yes Is the patient limited Iraqi proficient: No Constitutional: No: Symptoms Reported, See HPI, Chills, Diaphoresis, Fever, Loss of Appetite, Malaise, Night Sweats, Weakness, Weight Stable, Unintentional Wgt. Loss, Unexplained wgt Loss, Other Respiratory: Yes: Cough, Wheezing. No: Symptoms reported, See HPI, Orthopnea, Shortness of Breath, SOB with Exertion, SOB at Rest, Stridor, Productive cough, Hemoptysis, Other Cardiac (ROS): No: Symptoms Reported, See HPI, Chest Pain, Edema, Irregular Heart Rate, Lightheadedness, Palpitations, Syncope, Chest Tightness, Other ABD/GI: No: Symptoms Reported, See HPI, Abdominal Distended, Abd. Pain w/ defecation, Blood Streaked Bowels, Constipated, Diarrhea, Difficulty Swallowing , Nausea, Poor Appetite, Poor Fluid Intake, Rectal Bleeding, Vomiting, Indigestion, Abdominal cramping, Tarry Stools, Other *Physical Exam - Vital Signs Last Vital Signs Temp Pulse Resp BP Pulse Ox 98.0 F 84 16 116/79 96 07/11/18 19:37 07/11/18 19:37 07/11/18 19:37 07/11/18 19:37 07/11/18 19:37 - Physical Exam General Appearance: Yes: Appropriately Dressed Respiratory/Chest: positive: Wheezing Cardiovascular: positive: Regular Rhythm, Regular Rate Gastrointestinal/Abdominal: positive: Normal Bowel Sounds, Soft. negative: Tender Extremity: positive: Normal Capillary Refill, Normal Inspection, Normal Range of Motion Integumentary: positive: Normal Color, Dry, Warm Neurologic: positive: Fully Oriented, Alert, Normal Mood/Affect Moderate Sedation - Procedure Monitoring Vital Signs: Procedure Monitoring Vital Signs Temperature 98.0 F 07/11/18 19:37 Pulse Rate 84 07/11/18 19:37 Respiratory Rate 16 07/11/18 19:37 Blood Pressure 116/79 07/11/18 19:37 O2 Sat by Pulse Oximetry (%) 96 07/11/18 19:37 ED Treatment Course - Medications Given in the ED: ED Medications Discontinued Medications Generic Name Dose Route Start Last Admin Trade Name Freq PRN Reason Stop Dose Admin Albuterol/Ipratropium 1 amp 07/11/18 19:38 07/11/18 19:48 Duoneb - NEB 07/11/18 19:39 1 amp ONCE ONE Administration Progress Note - Progress Note Progress Note: Asthma exacerbation P: duoneb Prednisone *DC/Admit/Observation/Transfer Diagnosis at time of Disposition: Asthma exacerbation Qualifiers: Asthma severity: mild Asthma persistence: persistent Qualified Code(s): J45.31 - Mild persistent asthma with (acute) exacerbation - Discharge Dispostion Disposition: HOME - Prescriptions Prescriptions: Albuterol 0.083% Nebulizer Anika [Ventolin 0.083% Nebulizer Soln -] 1 neb NEB Q6H PRN #25 vial PRN Reason: Asthma Albuterol Sulfate Inhaler - [Ventolin HFA Inhaler -] 1 - 2 inh PO Q4H PRN #1 inhaler PRN Reason: Asthma Nebulizer [Aeroeclipse II] 1 each MC QID #1 each Prednisone [Prednisone 50 MG TABLETS] 50 mg PO DAILY #4 tablet - Referrals - Patient Instructions Printed Discharge Instructions: Asthma -- Adult Additional Instructions: take prednisone tomorrow use albuterol as prescribed Additional Instructions: * Please call your personal physician to report your Emergency Department visit and to report your progress, if any. * If there is no improvement in symptoms in 2 days call your physician. * Return to the Emergency Department for any worsening symptoms. - Post Discharge Activity Forms/Work/School Notes: Back to Work
--- NOTE | 2018-07-11 20:59 | PDOC ---
*Physical Exam - Vital Signs Last Vital Signs Temp Pulse Resp BP Pulse Ox 98.0 F 84 16 116/79 96 07/11/18 19:37 07/11/18 19:37 07/11/18 19:37 07/11/18 19:37 07/11/18 19:37 ED Treatment Course - Medications Given in the ED: ED Medications Discontinued Medications Generic Name Dose Route Start Last Admin Trade Name Freq PRN Reason Stop Dose Admin Albuterol/Ipratropium 1 amp 07/11/18 19:38 07/11/18 19:48 Duoneb - NEB 07/11/18 19:39 1 amp ONCE ONE Administration Medical Decision Making - Medical Decision Making 07/11/18 20:58 Patient seen by the advanced practice provider under my direct supervision. Ancillary testing reviewed as necessary. I agree with plan as outlined by the advanced practice provider. *DC/Admit/Observation/Transfer Diagnosis at time of Disposition: Asthma exacerbation Qualifiers: Asthma severity: mild Asthma persistence: persistent Qualified Code(s): J45.31 - Mild persistent asthma with (acute) exacerbation - Discharge Dispostion Disposition: HOME - Prescriptions Prescriptions: Albuterol 0.083% Nebulizer Anika [Ventolin 0.083% Nebulizer Soln -] 1 neb NEB Q6H PRN #25 vial PRN Reason: Asthma Albuterol Sulfate Inhaler - [Ventolin HFA Inhaler -] 1 - 2 inh PO Q4H PRN #1 inhaler PRN Reason: Asthma Nebulizer [Aeroeclipse II] 1 each MC QID #1 each Prednisone [Prednisone 50 MG TABLETS] 50 mg PO DAILY #4 tablet - Referrals - Patient Instructions Printed Discharge Instructions: Asthma -- Adult Additional Instructions: take prednisone tomorrow use albuterol as prescribed Additional Instructions: * Please call your personal physician to report your Emergency Department visit and to report your progress, if any. * If there is no improvement in symptoms in 2 days call your physician. * Return to the Emergency Department for any worsening symptoms. - Post Discharge Activity Forms/Work/School Notes: Back to Work
[2018-07-11] MEDS ORDERED: predniSONE 20 MG TABLET (UD) ONE (21:59)
[2018-07-11] MEDS: ALBUTEROL SO4 2.5/IPRATROPIUM 0.5 INH SOL 3 ML VIAL.NEB. NEB SCH ×4 (22:14→23:25)
== END 2018-07-11 23:39 | disposition home or self-care (01) ==
LOC: JER 19:33
PROC: 3E0F7GC Introduction of Other Therapeutic Substance into Respiratory Tract, Via Natural or Artificial Opening (ICD-10-PCS; principal; 2018-07-11)
PROC: 3E0F7GC Introduction of Other Therapeutic Substance into Respiratory Tract, Via Natural or Artificial Opening (ICD-10-PCS; 2018-07-11)
DX: J45.31 Mild persistent asthma with (acute) exacerbation (principal)
CPT/HCPCS: 99281-25